=== PATIENT | male | born 1985 | race Caucasian/White ===

== ENCOUNTER 2018-01-12 15:58 | Emergency (ER) | payer SELFPAY ==
[2018-01-12] MEDS ORDERED: Neomycin/Polymyxin/HC Otic Solution 10 ML BOT ONE (16:24)
[2018-01-12] MEDS ORDERED: Acetaminophen 500 MG TAB ONE (16:27)
[2018-01-12] MEDS ORDERED: Ibuprofen 800 MG TAB ONE (16:27)
== END 2018-01-12 16:47 | disposition home or self-care (01) ==
LOC: MADERS 15:58
DX: H60.91 Unspecified otitis externa, right ear (principal); F17.210 Nicotine dependence, cigarettes, uncomplicated; G43.909 Migraine, unspecified, not intractable, without status migrainosus
CPT/HCPCS: 99282

== ENCOUNTER 2018-01-19 08:56 | Emergency (ER) | payer SELFPAY | END 2018-01-19 09:50 | disposition home or self-care (01) | LOC: MADERS 08:56 | DX: H70.92 Unspecified mastoiditis, left ear (principal) | CPT/HCPCS: 99282 ==

== ENCOUNTER 2020-10-30 19:45 | Emergency (ER) | payer SELFPAY ==
[2020-10-30] MEDS ORDERED: Ibuprofen 800 MG TAB ONE (23:09)
== END 2020-10-30 23:30 | disposition home or self-care (01) ==
LOC: MADERS 19:45
DX: S03.41XA Sprain of jaw, right side, initial encounter (principal); S30.0XXA Contusion of lower back and pelvis, initial encounter; S10.91XA Abrasion of unspecified part of neck, initial encounter; F17.200 Nicotine dependence, unspecified, uncomplicated; Y04.0XXA Assault by unarmed brawl or fight, initial encounter
CPT/HCPCS: 70486